=== PATIENT | male | born 1995 | race Caucasian/White ===

== ENCOUNTER 2023-12-29 12:19 | Outpatient (CLI) | payer BC, SELFPAY ==
[2023-12-29] MEDS: METHACHOLINE CHLORIDE 18 ML VIAL.NEB INHALATION (14:00)
--- NOTE | 2023-12-30 15:58 | WPDMETH ---
Methacholine Procedure Perform Procedure Performed Methacholine Challenge Methacholine Challenge Methacholine Challenge: Date of Service: 12/29/2023 REQUESTING: Mina Castellanos MD REASON FOR TESTING: Extrinsic asthma METHACHOLINE CHALLENGE This test was performed and interpreted in accord with the 2021 ERS/ATS technical standards. Testing was performed with increasing doses of nebulized methacholine following a quadruple in dosage protocol.? The methacholine dose was delivered via the [employer] Mist nebulizer using a 1 minute tidal breathing protocol.? The best post -methacholine FEV1 values were used to determine the change from the post dilute FEV1.? The delivered dose of methacholine was used to calculate the provocative dose causing a 20% fall in the FEV1 ( PD 20). A previous PFT on July 22, 2023 at an outside facility showed an FEV1 before bronchodilator of 3.68 L, 73% predicted, below the lower limit of normal. The pre-bronchodilator FVC was 5.23 L, within the normal range. The pre-bronchodilator FEV1/FVC was 70.39%, borderline low for having a methacholine challenge. After bronchodilator, the FEV1 increased to 4.01 L, 330 ml increase which may be significant. The total lung capacity was 6.29 L, below the lower limit of normal, suggestive of a restrictive process. I do not have the estimated normals for this patient as the test was performed outside our facility. Findings ? Baseline FEV1? 4.02L, 81% Post diluent FEV1 ? 4.00 L, 81% 0% change Post-1.81 mcg? methacholine FEV1?? 3.95 L, 80%? -1% change Post-7.26? mcg methacholine? FEV1 ? 3.99 L, 81% 0% change Post-29.03 mcg methacholine FEV1? 4.04 L, 82% +1% change Post-116.1 mcg methacholine FEV1? 3.82 L, 77% -5% change Post-464.4 mcg methacholine FEV1? 3.32 L, 67% -17% change Post albuterol nebulization FEV1 ? ? ? 3.75 L, 76% -6% change The test was stopped after the final dose of methacholine. He did not have a drop of 20% in the FEV1 during this test. Flows returned to normal after bronchodilator was administered. IMPRESSION: This is a negative methacholine challenge with the largest drop in the FEV1 17% after the 5th and final dose of methacholine. The best use for a methacholine challenge is to rule out asthma. Clinical correlation is advised. Kirsty Castro MD
== END 2023-12-29 12:20 | disposition home or self-care (01) ==
LOC: ANHPFT 12:23
DX: J45.21 Mild intermittent asthma with (acute) exacerbation (principal)
CPT/HCPCS: 94070; J7674